=== PATIENT | male | born 1985 | race Hispanic/Latino ===

== ENCOUNTER 2020-09-19 00:07 | Emergency (ER) | payer SELFPAY ==
--- OUTSIDE RECORDS SUMMARY | 2020-09-19 00:11 | XMS REPORT | Continuity of Care Document ---
:1985 Author Organization [facility] t Address [address] [place] [address] Care Team Providers Name Role Phone Unavailable Unavailable Unavailable Payers Payer Name Policy Type Policy Number Effective Date Expiration Date S ource Problems This patient has no known problems. Allergies, Adverse Reactions, Alerts Allergy Allergy Status Severity Reaction(s) Onset Inactive Treating Comm ents Source Name Type Date Date Clinician No Known DA Active U [facility] Allergie 09-10 Corpus s 00:00: [address] Medications This patient has no known medications. Procedures This patient has no known procedures. Results Test Description Test Time Test Comments Results Result Comments Source BASIC METABOLIC PANEL 2019-02-26 06:44:00 Test Item Value Reference Range Interpretation Comme nts SODIUM (test code = NA) 141 MMOL/L 133-145 N POTASSIUM (test code = K) 3.6 MMOL/L 3.6-5.2 N CHLORIDE (test code = CL) 104 MMOL/L 100-108 N CARBON DIOXIDE (test code = 30 MMOL/L 22-32 N CO2) GLUCOSE (test code = GLU) 98 MG/DL 65-99 N Re sults of this assay method may be falsely depressed orelevated if p atient is taking sulfasalazine. BLOOD UREA NITROGEN (test code 9 MG/DL 6-20 N = BUN) GLOMERULAR FILTRATION RATE 122 70-162 N R eporting units: (test code = GFR) mL/min/1.7 3m\S\2 (Modified MDRD Formula) CREATININE (test code = CREAT) 0.74 MG/DL 0.60-1.00 N CALCIUM (test code = CA) 8.3 MG/DL 8.7-10.5 L HEPATIC FUNCTION [id number] 06:44:00 Test Item Value Reference Range Interpretation Comments TOTAL PROTEIN (test 7.1 G/DL 6.4-8.2 N code = PROT) ALBUMIN (test code = 3.6 G/DL 3.4-5.0 N ALB) GLOBULIN (test code = 3.5 G/DL 1.5-3.8 N GLOB) ALBUMIN/GLOBULIN RATIO 1.0 1.1-2.2 L (test code = A/G) BILIRUBIN TOTAL (test 1.1 MG/DL 0.0-1.0 H code = BILT) BILIRUBIN DIRECT (test 0.2 MG/DL 0.0-0.3 N code = BILD) BILIRUBIN INDIRECT 0.9 MG/DL 0.0-0.7 H (test code = BILIND) SGOT/AST (test code = 21 Units/L 15-37 N Result s of this AST) assay method ma y be falsely depress ed orelevated if patient is taki ng sulfasalazine. SGPT/ALT (test code = 29 Units/L 30-65 L Result s of this ALT) assay method ma y be falsely depress ed orelevated if patient is taki ng sulfasalazine. ALKALINE PHOSPHATASE 104 Units/L 50-136 N TOTAL (test code = ALKP) [id number] 06:44:00 Test Item Value Reference Range Interpretation Comments LIPASE (test code = LIP) 100 Units/L 73-393 N BASIC METABOLIC [id number] 06:40:00 Test Item Value Reference Range Interpretation Comments SODIUM (test code = 141 MMOL/L 133-145 N NA) POTASSIUM (test code = 3.6 MMOL/L 3.6-5.2 N K) CHLORIDE (test code = 104 MMOL/L 100-108 N CL) CARBON DIOXIDE (test 30 MMOL/L 22-32 N code = CO2) GLUCOSE (test code = 98 MG/DL 65-99 N Results of this assay GLU) method may be f alsely depressed orele vated if patient is t aking sulfasalazine. BLOOD UREA NITROGEN 9 MG/DL 6-20 N (test code = BUN) GLOMERULAR FILTRATION 122 70-162 N Report ing units: RATE (test code = GFR) mL/mi n/1.73m\S\2 (Modified MDRD Formula) CREATININE (test code 0.74 MG/DL 0.60-1.00 N = CREAT) CALCIUM (test code = 8.3 MG/DL 8.7-10.5 L CA) HEPATIC FUNCTION [id number] 06:40:00 Test Item Value Reference Range Interpretation Comments TOTAL PROTEIN (test code = PROT) G/DL 6.4-8.2 ALBUMIN (test code = ALB) G/DL 3.4-5.0 GLOBULIN (test code = GLOB) G/DL 1.5-3.8 ALBUMIN/GLOBULIN RATIO (test code = 1.1-2.2 A/G) BILIRUBIN TOTAL (test code = BILT) MG/DL 0.0-1.0 BILIRUBIN DIRECT (test code = BILD) MG/DL 0.0-0.3 SGOT/AST (test code = AST) Units/L 15-37 SGPT/ALT (test code = ALT) Units/L 30-65 ALKALINE PHOSPHATASE TOTAL (test Units/L 50-136 code = ALKP) [id number] 06:40:00 Test Item Value Reference Range Interpretation Comments LIPASE (test code = LIP) Units/L 73-393 TROPONIN I [id number] 06:39:00 Test Item Value Reference Range Interpretation Comments TROPONIN I RAPID 0.00 NG/ML 0.00-0.08 N 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 CBC W/AUTO [id number] 06:31:00 Test Item Value Reference Range Interpretation Comments WHITE BLOOD CELL (test code = 5.79 x10 3/uL 4.80-10.80 N WBC) RED BLOOD CELL (test code = 4.42 x10 6/uL 4.7-6.1 L RBC) HEMOGLOBIN (test code = HGB) 13.7 G/DL 14.0-17.0 L HEMATOCRIT (test code = HCT) 39.1 % 42-52 L MEAN CELL VOLUME (test code = 88.5 FL 80-94 N MCV) MEAN CELL HGB (test code = MCH) 31.0 PG 27-31 N MEAN CELL HGB CONCENTRATION 35.0 G/DL 33-37 N (test code = MCHC) RED CELL DISTRIBUTION WIDTH 12.7 % 11.5-14.5 N (test code = RDW) PLATELET COUNT (test code = 198 x10 3/uL 150-450 N PLT) MEAN PLATELET VOLUME (test code 11.7 FL 7.4-10.4 H = MPV) NEUTROPHIL % (test code = NT%) 61.3 % 42-86 N LYMPHOCYTE % (test code = LY%) 28.5 % 24-44 N MONOCYTE % (test code = MO%) 6.7 % 0.0-4.0 H EOSINOPHIL % (test code = EO%) 3.3 % 0.0-2.7 H BASOPHIL % (test code = BA%) 0.2 % 0.0-0.5 N NEUTROPHIL # (test code = NT#) 3.55 x10 3/uL 1.8-7.7 N LYMPHOCYTE # (test code = LY#) 1.65 x10 3/uL 1.0-4.8 N MONOCYTE # (test code = MO#) 0.39 x10 3/uL 0.0-0.8 N EOSINOPHIL # (test code = EO#) 0.19 x10 3/uL 0.0-0.5 N BASOPHIL # (test code = BA#) 0.01 x10 3/uL 0.0-0.2 N TROPONIN I [id number] 07:23:00 Test Item Value Reference Range Interpretation Comments TROPONIN I RAPID 0.01 NG/ML 0.00-0.08 N 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 - XR CHEST 1 [id number] 06:17:00 Patient Name: LAILA CHILD Unit No: [id number] EXAMS: CPT CODE: [id number] XR CHEST 1 V [id number] Reason: chest pain EXAM: XR Chest, 1 View EXAM DATE/TIME: 11/21/2018 4:41 AM CLINICAL HISTORY: 33 years old, male; Chest pain TECHNIQUE: Imaging protocol: XR of the chest, 1 view. COMPARISON: CR XR CHEST 1 V 02/08/2018 11:20 AM FINDINGS: Lungs: Unremarkable. No consolidation. Pleural space: Unremarkable. No pleural effusion. No pneumothorax. Heart/Mediastinum: Unremarkable. No cardiomegaly. Bones/joints: Unremarkable. IMPRESSION: No acute findings. at 0617 Reported and signed by: Teofilo Montenegro CC: Laila Moya MD Technologist: Leon Moffett RT Trscrpt Dt/ ([id number] Orig Print D/T: S: 11/21/2018 (616) [facility] NAME: LAILA MUÑOZ [address] PHYS: Laila Salgado [place] [address] : 1985 AGE: 33 SEX: M LOC: DICK PHONE #: [phone] EXAM DATE: 11/21/2018 STATUS: REG ER FAX #: RAD NO: DC Dt:PAGE 1 Signed Report COMPREHENSIVE METABOLIC [id number] 05:20:00 Test Item Value Reference Range Interpretation Comments SODIUM (test code = 138 MMOL/L 133-145 N NA) POTASSIUM (test code = 3.5 MMOL/L 3.6-5.2 L K) CHLORIDE (test code = 104 MMOL/L 100-108 N CL) CARBON DIOXIDE (test 27 MMOL/L 22-32 N code = CO2) GLUCOSE (test code = 101 MG/DL 65-99 H Results of this assay GLU) method may be f alsely depressed orele vated if patient is t aking sulfasalazine. BLOOD UREA NITROGEN 11 MG/DL 6-20 N (test code = BUN) GLOMERULAR FILTRATION 141 70-162 N Report ing units: RATE (test code = GFR) mL/mi n/1.73m\S\2 (Modified MDRD Formula) CREATININE (test code 0.65 MG/DL 0.60-1.00 N = CREAT) TOTAL PROTEIN (test 7.0 G/DL 6.4-8.2 N code = PROT) ALBUMIN (test code = 3.5 G/DL 3.4-5.0 N ALB) GLOBULIN (test code = 3.5 G/DL 1.5-3.8 N GLOB) ALBUMIN/GLOBULIN RATIO 1.0 1.1-2.2 L (test code = A/G) CALCIUM (test code = 8.3 MG/DL 8.7-10.5 L CA) BILIRUBIN TOTAL (test 0.8 MG/DL 0.0-1.0 N code = BILT) SGOT/AST (test code = 22 Units/L 15-37 N Result s of this assay AST) method may be f alsely depressed orele vated if patient is t aking sulfasalazine. SGPT/ALT (test code = 37 Units/L 30-65 N Result s of this assay ALT) method may be f alsely depressed orele vated if patient is t aking sulfasalazine. ALKALINE PHOSPHATASE 94 Units/L 50-136 N TOTAL (test code = ALKP) [id number] 05:20:00 Test Item Value Reference Range Interpretation Comments LIPASE (test code = LIP) 115 Units/L 73-393 N [id number] 05:20:00 Test Item Value Reference Range Interpretation Comments TROPONIN-I (test < 0.04 NG/ML 0.00-0.06 N - The use of serial code = TROPI) sampling and t esting protocol is a recommended pra ctice.- An elevated tro ponin level alone is often not sufficient fo r diagnosis of my ocardial infarction.Resu lts of this assay meth od may be falsely depress ed orelevated if p atient is taking high dos es of Biotin. 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 CBC W/AUTO [id number] 04:35:00 Test Item Value Reference Range Interpretation Comments WHITE BLOOD CELL (test code = 6.44 x10 3/uL 4.80-10.80 N WBC) RED BLOOD CELL (test code = 4.67 x10 6/uL 4.7-6.1 L RBC) HEMOGLOBIN (test code = HGB) 14.1 G/DL 14.0-17.0 N HEMATOCRIT (test code = HCT) 41.5 % 42-52 L MEAN CELL VOLUME (test code = 88.9 FL 80-94 N MCV) MEAN CELL HGB (test code = MCH) 30.2 PG 27-31 N MEAN CELL HGB CONCENTRATION 34.0 G/DL 33-37 N (test code = MCHC) RED CELL DISTRIBUTION WIDTH 12.7 % 11.5-14.5 N (test code = RDW) PLATELET COUNT (test code = 212 x10 3/uL 150-450 N PLT) MEAN PLATELET VOLUME (test code 11.0 FL 7.4-10.4 H = MPV) NEUTROPHIL % (test code = NT%) 57.2 % 42-86 N IMMATURE GRANULOCYTE % (test 0.2 % 0.0-2.0 N code = IG%) LYMPHOCYTE % (test code = LY%) 31.8 % 24-44 N MONOCYTE % (test code = MO%) 6.2 % 0.0-4.0 H EOSINOPHIL % (test code = EO%) 4.0 % 0.0-2.7 H BASOPHIL % (test code = BA%) 0.6 % 0.0-0.5 H NUCLEATED RBC % (test code = 0.0 % 0.0-0.0 N NRBC%) NEUTROPHIL # (test code = NT#) 3.68 x10 3/uL 1.8-7.7 N IMMATURE GRANULOCYTE # (test 0.01 x10 3/uL 0.00-0.03 N code = IG#) LYMPHOCYTE # (test code = LY#) 2.05 x10 3/uL 1.0-4.8 N MONOCYTE # (test code = MO#) 0.40 x10 3/uL 0.0-0.8 N EOSINOPHIL # (test code = EO#) 0.26 x10 3/uL 0.0-0.5 N BASOPHIL # (test code = BA#) 0.04 x10 3/uL 0.0-0.2 N NUCLEATED RBC # (test code = 0.0 X10 3/uL 0.0-0.2 N NRBC#)
[2020-09-19 00:31] LABS: Protime INR 1.12
[2020-09-19 00:32] LABS: Absolute Lymphocytes (CBC) 2.4 K/uL (0.7-4.9); Basophils % 0.9 % (0-1.3); Hematocrit 38.5 % (39.6-49.0); Lymphocytes % 29.5 % (15.3-44.8); RBC Red Blood Cell Count 4.32 M/uL (4.33-5.43)
[2020-09-19 00:45] LABS: ALT/SGPT 39 U/L (12-78); AST/SGOT 23 U/L (15-37); Albumin 3.7 g/dL (3.4-5.0); Alkaline Phosphatase 103 U/L (45-117); BUN Blood Urea Nitrogen 15 mg/dL (7-18); Bicarbonate 28 mmol/L (21-32); Bilirubin Direct 0.2 mg/dL (0-0.2); Bilirubin Total 0.8 mg/dL (0.2-1.0); Glucose Level 94 mg/dL (74-106); Magnesium 2.1 mg/dL (1.8-2.4); NT PRO-BNP 24 pg/mL (<125); Potassium 3.4 mmol/L (3.5-5.1); Protein, Total 7.2 g/dL (6.4-8.2); Sodium Level 143 mmol/L (136-145); Troponin (Emerg Dept Use Only) < 0.02 ng/mL (0.0-0.045)
--- NOTE | 2020-09-19 00:58 | ER ---
Nurse's Notes [facility] Name: Tevin Thompson Age: 35 yrs Sex: Male : 1985 Arrival Date: 09/19/2020 Time: 00:12 Bed 2 Private MD: Diagnosis: Chest pain, unspecified Presentation: 09/19 00:10 Chief complaint: EMS states: sudden chest pain started 30 minutes ago, woke up from rr5 sleeping. feel sore on left shoulder and lower back. 00:10 Coronavirus screen: Client denies travel out of the [place] in the last 14 days. At this rr5 time, the client does not indicate any symptoms associated with coronavirus-19. Ebola Screen: Patient negative for fever greater than or equal to 101.5 degrees Fahrenheit, and additional compatible Ebola Virus Disease symptoms Patient denies exposure to infectious person. Patient denies travel to an Ebola-affected area in the 21 days before illness onset. Initial Sepsis Screen: Does the patient meet any 2 criteria? No. Patient's initial sepsis screen is negative. Does the patient have a suspected source of infection? No. Patient's initial sepsis screen is negative. Risk Assessment: Do you want to hurt yourself or someone else? Patient reports no desire to harm self or others. Onset of symptoms was September 19, 2020. 00:10 Method Of Arrival: EMS: [facility] rr5 00:10 Acuity: LATASHA 3 rr5 00:10 Care prior to arrival: Medication(s) given: ASA, 325 mg. rr5 Historical: - Allergies: 00:19 No Known Allergies; rr5 - Home Meds: 00:19 None [Active]; rr5 - PMHx: 00:19 acid reflux; Anxiety; Depression; rr5 - PSHx: 00:19 None; rr5 - Immunization history:: Adult Immunizations up to date. - Social history:: Smoking status: unknown. Screenin:16 Abuse screen: Denies threats or abuse. Denies injuries from another. Nutritional rv screening: No deficits noted. Tuberculosis screening: No symptoms or risk factors identified. Fall Risk None identified. Assessment: 00:20 General: Appears in no apparent distress. comfortable, Behavior is calm, cooperative, rr5 appropriate for age. Pain: Complains of pain in chest Pain does not radiate. Pain currently is 2 out of 10 on a pain scale. Quality of pain is described as aching, Pain began gradually, Is intermittent. Neuro: Level of Consciousness is awake, alert, obeys commands, Oriented to person, place, time. Cardiovascular: Reports chest pain, Capillary refill < 3 seconds Patient's skin is warm and dry. Respiratory: Airway is patent Respiratory effort is even, unlabored, Respiratory pattern is regular, symmetrical. GI: No signs and/or symptoms were reported involving the gastrointestinal system. : No signs and/or symptoms were reported regarding the genitourinary system. EENT: No signs and/or symptoms were reported regarding the EENT system. Derm: Skin is intact, is healthy with good turgor, Skin temperature is warm. Musculoskeletal: Capillary refill < 3 seconds, Reports pain in back and anterior aspect of left shoulder. 01:14 Reassessment: Patient appears in no apparent distress at this time. Patient is alert, rr5 oriented x 3, equal unlabored respirations, skin warm/dry/pink. discharge instruction given and explained without complaints made. Vital Signs: 00:10 BP 117 / 82; Pulse 76; Resp 16; Temp 98; Pulse Ox 99% ; Weight 127.01 kg; Height 6 ft. rr5 0 in. (182.88 cm); Pain 2/10; 01:13 BP 121 / 70; Pulse 70; Resp 19; Pulse Ox 99% ; rr5 00:10 Body Mass Index 37.97 (127.01 kg, 182.88 cm) rr5 ED Course: 00:12 Patient arrived in ED. lp1 00:13 Fito Prado PA is PHCP. jmm 00:13 Yadiel Carmichael MD is Attending Physician. jmm 00:14 Norman Cooper RN is Primary Nurse. rv 00:15 Maintain EMS IV. Dressing intact. Good blood return noted. Site clean \T\ dry. Gauge \T\ rv site: G20 LAC. 00:16 Patient has correct armband on for positive identification. monitoring manager on. Pulse rv ox on. NIBP on. 00:19 Triage completed. rr5 00:20 Arm band placed on. rr5 01:13 No provider procedures requiring assistance completed. IV discontinued, intact, rr5 bleeding controlled, No redness/swelling at site. Pressure dressing applied. 01:15 XRAY Chest (1 view) In Process Unspecified. EDMS Administered Medications: No medications were administered Outcome: 00:58 Discharge ordered by . maco 01:13 Discharged to home ambulatory. rr5 01:13 Condition: stable 01:13 Discharge instructions given to patient, Instructed on discharge instructions, follow up and referral plans. medication usage, Demonstrated understanding of instructions, follow-up care, medications, Prescriptions given X 2. 01:14 Patient left the ED. rr5 Signatures: Dispatcher [employer] EDMS Fito Prado PA PA jmm Pena, Laura, RN RN lp1 Norman Cooper, RN RN rv Vincent Ram, RN RN rr5
--- NOTE | 2020-09-19 00:58 | EDPHYS ---
Physician Documentation [facility] Name: Tevin Thompson Age: 35 yrs Sex: Male : 1985 Arrival Date: 09/19/2020 Time: 00:12 Bed 2 Private MD: ED Physician Yadiel Carmichael HPI: 09/19 00:49 This 35 yrs old Male presents to ER via EMS with complaints of Chest Pain. [facility] 00:49 The patient or guardian reports chest pain that is located primarily in the anterior [facility] chest wall. The pain radiates to back. Associated signs and symptoms: Pertinent negatives: shortness of breath. The chest pain is described as aching. Duration: The patient or guardian reports a single episode, that is still ongoing. Modifying factors: The symptoms are alleviated by remaining still, the symptoms are aggravated by movement. The patient has not experienced similar symptoms in the past. This is a 35 year old male with a history of anxiety, PUD that presents to the ED with complaints of chest pain beginning earlier this evening. Pain is worsened with movement. Patient denies history of cardiac conditions. States he worked yesterday for the first time in 6 months and performed strenuous activity. Denies swelling of legs, hemoptysis, history of PE or DVT. . Historical: - Allergies: 00:19 No Known Allergies; rr5 - Home Meds: 00:19 None [Active]; rr5 - PMHx: 00:19 acid reflux; Anxiety; Depression; rr5 - PSHx: 00:19 None; rr5 - Immunization history:: Adult Immunizations up to date. - Social history:: Smoking status: unknown. ROS: 00:49 Constitutional: Negative for fever, chills, and weight loss. jmm 00:49 Cardiovascular: Positive for chest pain. 00:49 Back: Positive for pain with movement. 00:49 All other systems are negative. Exam: 00:49 Constitutional: This is a well developed, well nourished patient who is awake, alert, jmm and in no acute distress. Head/Face: atraumatic. Eyes: EOMI, no conjunctival erythema appreciated ENT: Moist Mucus Membranes Neck: Trachea midline, Supple 00:49 Chest/axilla: Inspection: normal, Palpation: tenderness, that is mild, that totally reproduces the patient's complaints. 00:49 Cardiovascular: Rate: normal, Rhythm: regular. 00:49 Respiratory: the patient does not display signs of respiratory distress, Respirations: normal, Breath sounds: are clear throughout. 00:49 Abdomen/GI: Inspection: abdomen appears normal, Bowel sounds: normal, Palpation: abdomen is soft and non-tender, in all quadrants. 00:49 Back: ROM is painful, with rotation to the right, with rotation to the left. 00:49 Musculoskeletal/extremity: ROM: intact in all extremities, movement of left shoulder increases chest pain. 00:49 Skin: Appearance: Color: normal in color. 00:49 Neuro: Orientation: is normal, Mentation: is normal, Memory: is normal. 00:49 Psych: Behavior/mood is pleasant, cooperative. Vital Signs: 00:10 BP 117 / 82; Pulse 76; Resp 16; Temp 98; Pulse Ox 99% ; Weight 127.01 kg; Height 6 ft. rr5 0 in. (182.88 cm); Pain 2/10; 01:13 BP 121 / 70; Pulse 70; Resp 19; Pulse Ox 99% ; rr5 00:10 Body Mass Index 37.97 (127.01 kg, 182.88 cm) rr5 MDM: 00:23 Patient medically screened. [facility] 00:55 Data reviewed: vital signs, nurses notes. Counseling: I had a detailed discussion with maco the patient and/or guardian regarding: the historical points, exam findings, and any diagnostic results supporting the discharge/admit diagnosis, lab results, radiology results, the need for outpatient follow up, to return to the emergency department if symptoms worsen or persist or if there are any questions or concerns that arise at home. ED course: HEART SCORE = 1, PERC NEGATIVE. 09/19 00:15 Order name: Basic Metabolic Panel; Complete Time: 00:45 09/19 00:15 Order name: CBC with Diff; Complete Time: 00:45 09/19 00:15 Order name: LFT's; Complete Time: 00:45 09/19 00:15 Order name: Magnesium; Complete Time: 00:45 09/19 00:15 Order name: NT PRO-BNP; Complete Time: 00:45 09/19 00:15 Order name: PT-INR; Complete Time: 00:45 09/19 00:15 Order name: Troponin (emerg Dept Use Only); Complete Time: 00:45 rv 09/19 00:15 Order name: XRAY Chest (1 view) rv 09/19 00:15 Order name: EKG; Complete Time: 00:16 rv 09/19 00:15 Order name: Cardiac monitoring; Complete Time: 00:15 09/19 00:15 Order name: EKG - Nurse/Tech; Complete Time: 00:15 09/19 00:15 Order name: IV Saline Lock; Complete Time: 00:15 rv 09/19 00:15 Order name: Labs collected and sent; Complete Time: 00:15 rv 09/19 00:15 Order name: O2 Per Protocol; Complete Time: 00:15 09/19 00:15 Order name: O2 Sat Monitoring; Complete Time: 00:15 rv Administered Medications: No medications were administered Disposition: 07:28 Co-signature as Attending Physician, Yadiel Carmichael MD. [email or web address] Disposition: 09/19/20 00:58 Discharged to Home. Impression: Chest pain, unspecified. - Condition is Stable. - Discharge Instructions: Nonspecific Chest Pain. - Prescriptions for Ibuprofen 800 mg Oral Tablet - take 1 tablet by ORAL route every 8 hours As needed take with food; 30 tablet. orphenadrine citrate 100 mg Oral Tablet Sustained Release - take 1 tablet by ORAL route 2 times per day As needed; 20 tablet. - Medication Reconciliation Form, Thank You Letter, Antibiotic Education, Prescription Opioid Use form. - Follow up: Private Physician; When: 2 - 3 days; Reason: Recheck today's complaints, Continuance of care, Re-evaluation by your physician. Signatures: Dispatcher [employer] EDMS Fito Prado PA PA jmm Vicente, Ronaldo, RN RN Vincent Baca RN RN rr5 Yadiel Carmichael MD MD [email or web address] Corrections: (The following items were deleted from the chart) 01:14 00:58 09/19/2020 00:58 Discharged to Home. Impression: Chest pain, unspecified. rr5 Condition is Stable. Forms are Medication Reconciliation Form, Thank You Letter, Antibiotic Education, Prescription Opioid Use. Follow up: Private Physician; When: 2 - 3 days; Reason: Recheck today's complaints, Continuance of care, Re-evaluation by your physician. maco
[2020-09-19 02:20] VITALS: TEMP 98; O2SAT 99
[2020-09-19 02:21] VITALS: BP 121/70
--- NOTE | 2020-09-19 09:21 | RAD REPORT ---
EXAM DESCRIPTION: RAD - Chest Single View - 09/19/2020 1:15 am CLINICAL HISTORY: CHEST PAIN COMPARISON: Portable September 2016 TECHNIQUE: AP portable chest image was obtained 09/19/2020 1:15 am . FINDINGS: Lung volumes are low but clear. No failure or volume overload. Heart and vasculature are n ormal. No measurable pleural effusion and no pneumothorax. No acute bony abnormality seen. No acute a ortic findings suspected. IMPRESSION: No acute cardiopulmonary process. No significant change from comparison study.
== END 2020-09-19 01:14 | disposition home or self-care (01) ==
LOC: ER 00:07
DX: R07.9 Chest pain, unspecified (principal); K21.9 Gastro-esophageal reflux disease without esophagitis; F41.9 Anxiety disorder, unspecified; F32.9 Major depressive disorder, single episode, unspecified
CPT/HCPCS: 36415; 71045; 80048; 80076; 83735; 83880; 84484; 85025; 85610; 93005; 99284